=== PATIENT | male | born 1965 | race Caucasian/White ===

== ENCOUNTER 2024-04-27 17:56 | Emergency (ER) | payer BC, OTHER ==
[2024-04-27] MEDS ORDERED: Morphine 4 MG/ML VIAL ONE (19:28)
[2024-04-27] MEDS ORDERED: Ondansetron PF 4 MG/2 ML Vial ONE (19:28)
[2024-04-27] MEDS ORDERED: Acetaminophen 500 MG TAB ONE (19:28)
[2024-04-27] MEDS ORDERED: Ketorolac Tromethamine 30 MG (1 mL) VIAL ONE (19:28)
[2024-04-27 19:51] LABS: Bilirubin Neg (Negative); Blood, Urine Negative (Negative); Glucose, Urine (Dipstick) 100 mg/dL (Negative); Ketone, Urine Negative (Negative); Leukocyte Negative (Negative); Nitrite Negative (Negative); Protein, Urine (Dipstick) 15 mg/dl (Neg-Trace)
[2024-04-27 20:09] LABS: Clarity Clear (Clear)
[2024-04-27 20:10] LABS: Bacteria/HPF Rare-Few HPF (None Seen); CAUTI Indications for Culture Pelvic or flank pain; Mucous/LPF Rare LPF (<2+); RBC/HPF 0-3 HPF (0-3); Squamous Epithelial 0-3 HPF (0-3); WBC/HPF 0-3 HPF (0-3)
[2024-04-27 20:11] LABS: Urine Culture Reflex No No
[2024-04-27 20:57] LABS: #Basophils 0.03 10x3/uL (0.0-0.2); #Eosinophils 0.02 10x3/uL (0.0-0.5); #Monocytes 0.67 10x3/uL (0.0-1.1); #Neutrophils 3.39 10x3/uL (1.5-8.4); %Basophils 0.6 % (0.0-2.0); %Eosinophils 0.4 % (0.0-6.0); %Lymphocytes 22.4 % (18.0-47.0); %Monocytes 12.5 % (0.0-10.0); %Neutrophils 63.2 % (40.0-75.0); ALT (SGPT) 41 U/L (8-55); AST (SGOT) 16 U/L (5-34); Albumin 3.7 g/dL (3.5-5.0); Alkaline Phosphatase 115 U/L (40-110); Anion Gap 15 mmol/L (10-20); BUN (Urea Nitrogen) 16 mg/dL (8.4-25.7); Bilirubin, Total 1.2 mg/dL (0.2-1.2); Calc. Creatinine Clearance 0 mL/min (70-130); Calcium 9.5 mg/dL (7.8-10.44); Carbon Dioxide 20 mmol/L (22-29); Chloride 104 mmol/L (98-107); Estimated GFR 101; Globulin 3.7 g/dL (2.4-3.5); Glucose 135 mg/dL (70-105); Hematocrit 36.2 % (38.8-50.0); Hemoglobin 13.2 g/dL (13.5-17.5); Mean Corpuscular HGB CONC 36.5 g/dL (32.0-36.0); Mean Corpuscular Hemoglobin 34.8 pg (27.0-33.0); Mean Corpuscular Volume 95.5 fL (81.2-95.1); Mean Platelet Volume 9.6 fL (7.4-10.4); Platelet Count 84 10x3/uL (150-450); Potassium 3.5 mmol/L (3.5-5.1); Protein, Total 7.4 g/dL (6.0-8.3); RBC Distribution Width 12.9 % (11.5-14.5); Red Blood Cell (RBC) Count 3.79 10x6/uL (4.32-5.72); Sodium 135 mmol/L (136-145); White Blood Cell (WBC) Count 5.4 10x3/uL (3.5-10.5)
[2024-04-27 20:58] LABS: Platelet Adequacy Comment Platelets Decreased; RBC Morph Comment Within Normal Limits
[2024-04-27] MEDS ORDERED: Morphine 10 MG/ML VIAL ONE (22:45)
== END 2024-04-27 23:28 | disposition home or self-care (01) ==
LOC: CSHERS 17:56
DX: M54.50 Low back pain, unspecified (principal); K76.89 Other specified diseases of liver; N28.89 Other specified disorders of kidney and ureter; I10 Essential (primary) hypertension; F17.220 Nicotine dependence, chewing tobacco, uncomplicated; E78.5 Hyperlipidemia, unspecified; X50.0XXA Overexertion from strenuous movement or load, initial encounter; Y93.89 Activity, other specified; Z79.899 Other long term (current) drug therapy
CPT/HCPCS: 36415; 74177; 80053; 81001; 85025; 96374; 96375; 96376; J1885; J2270; J2272; J2405

== ENCOUNTER 2024-05-01 09:07 | Emergency (ER) | payer OTHER ==
[2024-05-01] MEDS ORDERED: Diazepam 5 MG TAB ONE (09:31)
[2024-05-01] MEDS ORDERED: Ketorolac Tromethamine 30 MG (1 mL) VIAL ONE (09:31)
== END 2024-05-01 09:44 | disposition home or self-care (01) ==
LOC: CSHERS 09:07
DX: M54.50 Low back pain, unspecified (principal); I10 Essential (primary) hypertension; F17.220 Nicotine dependence, chewing tobacco, uncomplicated; X50.1XXA Overexertion from prolonged static or awkward postures, initial encounter
CPT/HCPCS: 96372; 99283; J1885

== ENCOUNTER 2024-05-18 11:24 | Emergency (ER) | payer OTHER ==
[2024-05-18 12:42] LABS: Bilirubin Neg (Negative); Blood, Urine Negative (Negative); Clarity Clear (Clear); Glucose, Urine (Dipstick) Normal (Negative); Ketone, Urine Negative (Negative); Leukocyte Negative (Negative); Nitrite Negative (Negative); Protein, Urine (Dipstick) 15 mg/dl (Neg-Trace)
[2024-05-18 12:55] LABS: #Basophils 0.01 10x3/uL (0.0-0.2); #Eosinophils 0.05 10x3/uL (0.0-0.5); #Monocytes 0.52 10x3/uL (0.0-1.1); #Neutrophils 2.96 10x3/uL (1.5-8.4); %Basophils 0.2 % (0.0-2.0); %Eosinophils 1.1 % (0.0-6.0); %Lymphocytes 21.1 % (18.0-47.0); %Monocytes 11.5 % (0.0-10.0); %Neutrophils 65.7 % (40.0-75.0); Hematocrit 32.2 % (38.8-50.0); Hemoglobin 11.6 g/dL (13.5-17.5); Mean Corpuscular Hemoglobin 34.1 pg (27.0-33.0); Mean Corpuscular Volume 94.7 fL (81.2-95.1); Mean Platelet Volume 9.3 fL (7.4-10.4); Platelet Count 112 10x3/uL (150-450); RBC Distribution Width 13.1 % (11.5-14.5); White Blood Cell (WBC) Count 4.5 10x3/uL (3.5-10.5)
[2024-05-18 12:58] LABS: INR-International Normal Ratio 1.2; PTT 30.9 sec (22.0-33.0); Prothrombin Time 12.4 sec (9.5-12.1)
[2024-05-18 13:04] LABS: ALT (SGPT) 19 U/L (8-55); AST (SGOT) 10 U/L (5-34); Albumin 3.1 g/dL (3.5-5.0); Alkaline Phosphatase 155 U/L (40-110); Anion Gap 12 mmol/L (10-20); BUN (Urea Nitrogen) 17 mg/dL (8.4-25.7); Calc. Creatinine Clearance 0 mL/min (70-130); Calcium 8.9 mg/dL (7.8-10.44); Carbon Dioxide 25 mmol/L (22-29); Chloride 105 mmol/L (98-107); Estimated GFR 105; Globulin 3.6 g/dL (2.4-3.5); Glucose 120 mg/dL (70-105); Potassium 3.6 mmol/L (3.5-5.1); Protein, Total 6.7 g/dL (6.0-8.3); Sodium 138 mmol/L (136-145)
[2024-05-18 13:14] LABS: CAUTI Indications for Culture Pelvic or flank pain; RBC/HPF 0-3 HPF (0-3); Squamous Epithelial 0-3 HPF (0-3); WBC/HPF None Seen HPF (0-3)
[2024-05-18 13:15] LABS: Bacteria/HPF None Seen HPF (None Seen)
[2024-05-18 13:16] LABS: Urine Culture Reflex No No
[2024-05-18] MEDS ORDERED: Morphine 4 MG/ML VIAL ONE (13:34)
[2024-05-18] MEDS ORDERED: Acetaminophen 325 MG TAB ONE (13:34)
[2024-05-18] MEDS ORDERED: Cefepime 2 GM VIAL ONE (13:41)
[2024-05-18] MEDS ORDERED: Vancomycin 2.5 GM in Sodium Chloride 0.9% 500 ML IVPB SCH (14:00)
== END 2024-05-18 15:38 | disposition short-term general hospital (02) ==
LOC: CSHERS 11:24
DX: M46.47 Discitis, unspecified, lumbosacral region (principal); M46.26 Osteomyelitis of vertebra, lumbar region; I10 Essential (primary) hypertension; F17.220 Nicotine dependence, chewing tobacco, uncomplicated; E78.5 Hyperlipidemia, unspecified; Z79.899 Other long term (current) drug therapy
CPT/HCPCS: 36415; 71045; 80053; 81001; 83605; 84145; 85025; 85610; 85730; 86140; 87040; 87077; 87086; 87149; 87186; 96365; 96375; J0692; J2272; J3370; J7030